=== PATIENT | male | born 1990 | race Caucasian/White ===

== ENCOUNTER 2024-11-16 13:16 | Inpatient (IN) | payer MEDICAID ==
[~2024-11-16] VITALS: Ht 177.8 cm; Wt 66.9 kg
[2024-11-16] MEDS: ACETAMINOPHEN 500 MG TABLET PO ONE (13:51)
[2024-11-16] MEDS: SODIUM CHLORIDE 0.9% 1,000 ML IV ONE (13:51)
[2024-11-16] MEDS: LORazepam 2 MG/ML VIAL IVP ONE (13:51)
[2024-11-16 13:55] LABS: PLATELET COUNT (AUTO) 431 K/uL (150-450); RED BLOOD CELL COUNT(AUTO) 4.93 MIL/uL (4.50-5.90); RED CELL DISTRIBUTION WIDTH 14.2 % (11.5-14.5); WHITE BLOOD COUNT (AUTO) 9.4 K/uL (4.5-11.0)
[2024-11-16 14:00] LABS: APPEARANCE,URINE CLEAR (CLEAR); GLUCOSE, URINE (UA) NEGATIVE (NEGATIVE); LEUKOCYTE ESTERASE ,URINE NEGATIVE (NEGATIVE); NITRATE,URINE NEGATIVE (NEGATIVE); OCCULT BLOOD,URINE NEGATIVE (NEGATIVE); PH,URINE DRUG SCREEN 6.5 (5.0-8.0); SPECIFIC GRAVITIY, URINE 1.002 (1.003-1.030)
[2024-11-16 14:06] LABS: CALCIUM, TOTAL 9.3 mg/dL (8.8-10.5); CREATININE 0.62 mg/dL (0.60-1.30); GLOMERULAR FILTR. RATE CALC > 60 mL/min (>60); GLUCOSE,RANDOM 113 mg/dL (70-110); SODIUM SERUM 142 mmol/L (136-145); UREA NITROGEN, BLOOD 8 mg/dL (7-18)
[2024-11-16 14:07] LABS: ALCOHOL, BLOOD (SERUM) 13.0 mg/dL (0-10)
[2024-11-16 14:09] LABS: ASPARTATE AMINOTRANSFERASE 13.0 U/L (15-37); CREATINE KINASE, TOTAL ONLY 70.0 U/L (39-308); TOTAL PROTEIN, SERUM 8.1 g/dL (6.4-8.2)
[2024-11-16 14:10] LABS: ALCOHOL, URINE DRUG SCREEN NEGATIVE (NEGATIVE); AMPHET/METH SCREEN,URINE NEGATIVE (NEGATIVE); BARBITURATE SCREEN, URINE NEGATIVE (NEGATIVE); CANNABINOID SCREEN,URINE NEGATIVE (NEGATIVE); COCAINE SCREEN,URINE NEGATIVE (NEGATIVE); METHADONE SCREEN, URINE NEGATIVE (NEGATIVE)
[2024-11-16 14:12] LABS: TROPONIN I-HIGH SENSITIVITY 5 ng/L (<76)
[2024-11-16] MEDS: LevETIRAcetam 1,000 MG in DEXTROSE 5%-WATER 100 ML IV ONE (15:12)
[2024-11-16] MEDS: KETOROLAC TROMETHAMINE 30 MG/ML VIAL IVP ONE (16:02)
[2024-11-16] MEDS ORDERED: ACETAMINOPHEN 325 MG TABLET PO PRN ×2 (21:15)
[2024-11-16] MEDS ORDERED: MAGNESIUM HYDROXIDE SUSPENSION 30 ML UDCUP PO PRN (21:15)
[2024-11-16] MEDS ORDERED: ALBUTEROL SULFATE 2.5 MG/0.5 ML NEB SOLUTION NEB PRN (21:15)
[2024-11-16] MEDS ORDERED: PROMETHAZINE HCL 25 MG TABLET PO PRN (21:15)
[2024-11-16] MEDS ORDERED: MAG HYDROX/ALUMINUM HYD/SIMETH ES 30 ML SUSPENSION UDCUP PO PRN (21:15)
[2024-11-16] MEDS ORDERED: LOPERAMIDE HCL 2 MG/15 ML SUSPENSION UDCUP PO PRN (21:15)
[2024-11-16] MEDS ORDERED: BACLOFEN 10 MG TABLET PO PRN (21:15)
[2024-11-16] MEDS ORDERED: BISACODYL 10 MG RECTAL RECTAL SUPPOSITORY PR PRN (21:15)
[2024-11-16] MEDS ORDERED: IBUPROFEN 600 MG TABLET PO PRN (21:15)
[2024-11-16] MEDS ORDERED: LORazepam 2 MG/ML VIAL IVP PRN (21:15)
[2024-11-16] MEDS ORDERED: IPRATROPIUM BROMIDE 0.5 MG/2.5 ML NEB SOLUTION NEB PRN (21:15)
[2024-11-16] MEDS ORDERED: ONDANSETRON HCL 4 MG/2 ML VIAL IVP PRN (21:15)
[2024-11-16] MEDS ORDERED: DICYCLOMINE HCL 10 MG CAPSULE PO PRN (21:15)
[2024-11-16 21:17] VITALS: BP 99/67; PULSE 69; RESP 18; TEMP 97.7; O2SAT 97
[2024-11-16 21:30] VITALS: BP 99/67; PULSE 69; RESP 18; TEMP 97.7; O2SAT 100; O2SAT 97
[2024-11-16] MEDS: 1: MAGNESIUM SULFATE 2 GM, MVI, ADULT NO.1 WITH VIT K 10 ML, THIAMINE 100 MG, FOLIC ACID IV SCH (22:15)
[2024-11-16 22:37] VITALS: BP 110/71; PULSE 89; RESP 16; O2SAT 97
[2024-11-16] MEDS: HYDROCODONE/ACETAMINOPHEN 5-325 MG TABLET PO PRN (22:40)
[2024-11-17] VITALS (7 sets, daily range): BP systolic 101–124; BP diastolic 70–95; PULSE 75–88; RESP 17–18; TEMP 97.7–98.8; O2SAT 96–98
[2024-11-17] MEDS: HEPARIN SODIUM,PORCINE 5,000 UNITS/ML VIAL SQ SCH
[2024-11-17] MEDS: PANTOPRAZOLE SODIUM 40 MG DR TABLET PO SCH (09:26)
[2024-11-17] MEDS ORDERED: SODIUM CHLORIDE 0.9% 1,000 ML ONE (12:05)
[2024-11-17] MEDS: POTASSIUM CHLORIDE 20 MEQ ER TABLET PO ONE (21:26)
[2024-11-18] VITALS (8 sets, daily range): BP systolic 109–137; BP diastolic 73–90; PULSE 78–100; RESP 16–20; TEMP 97.7–98.6; O2SAT 95–100
[2024-11-18] MEDS: MORPHINE SULFATE 2 MG/ML SYRINGE IVP PRN (03:05)
[2024-11-18 06:11] LABS: CALCIUM, TOTAL 8.6 mg/dL (8.8-10.5); CREATININE 0.57 mg/dL (0.60-1.30); GLOMERULAR FILTR. RATE CALC > 60 mL/min (>60); GLUCOSE,RANDOM 98 mg/dL (70-110); SODIUM SERUM 141 mmol/L (136-145); UREA NITROGEN, BLOOD 7 mg/dL (7-18)
[2024-11-18 06:38] LABS: PLATELET COUNT (AUTO) 355 K/uL (150-450); RED BLOOD CELL COUNT(AUTO) 4.29 MIL/uL (4.50-5.90); RED CELL DISTRIBUTION WIDTH 14.0 % (11.5-14.5); WHITE BLOOD COUNT (AUTO) 8.7 K/uL (4.5-11.0)
[2024-11-18] MEDS ORDERED: SODIUM CHLORIDE 0.9% 1,000 ML ONE (13:38)
[2024-11-18] MEDS: ZOLPIDEM TARTRATE 5 MG TABLET PO PRN (20:29)
[2024-11-19 03:20] VITALS: BP 134/96; PULSE 83; RESP 20; TEMP 98; O2SAT 96
[2024-11-19 07:49] VITALS: BP 131/88; PULSE 90; RESP 18; TEMP 98.1; O2SAT 97
[2024-11-19] MEDS ORDERED: THIA100T80 PO (12:33)
[2024-11-19] MEDS ORDERED: MULT-1203 PO (12:33)
[2024-11-19] MEDS ORDERED: FOLI-130 PO (12:33)
[2024-11-19] MEDS ORDERED: LORA1TAB25 PO ×2 (12:33→12:35)
[2024-11-19] MEDS ORDERED: LEVE-71 PO (12:33)
== END 2024-11-19 14:25 | disposition home or self-care (01) | DRG 53 ==
LOC: EMS 13:18 → EDH 17:44 → 5S 21:04 → 6N 11-18 14:50
PROVIDERS: ADMIT Hospitalist; ATTEND Hospitalist
DX: G40.89 Other seizures (principal); E87.6 Hypokalemia; F10.939 Alcohol use, unspecified with withdrawal, unspecified; F41.9 Anxiety disorder, unspecified; F15.10 Other stimulant abuse, uncomplicated; F19.10 Other psychoactive substance abuse, uncomplicated; F13.239 Sedative, hypnotic or anxiolytic dependence with withdrawal, unspecified; S20.20XA Contusion of thorax, unspecified, initial encounter; Y90.9 Presence of alcohol in blood, level not specified; X58.XXXA Exposure to other specified factors, initial encounter; Y93.89 Activity, other specified; Y92.89 Other specified places as the place of occurrence of the external cause; Y99.8 Other external cause status; Z79.899 Other long term (current) drug therapy; Z71.6 Tobacco abuse counseling
CPT/HCPCS: 70450; 71045; 72125; 72128; 80048; 80076; 80307; 81003; 82550; 83735; 83880; 84484; 85025; 93005; 99285; G0480; J0712; J1644; J1885; J2060; J2270; J3411; J3475; J3490; J7030; J7060; 36415-L1; 36415-TC

== ENCOUNTER 2024-12-28 20:16 | Emergency (ER) | payer MEDICAID ==
[~2024-12-28] VITALS: Ht 170.2 cm; Wt 63.6 kg
[~2024-12-28 20:16] MED LIST: FOLI-130 PO; LEVE-71 PO; LORA1TAB25 PO; MULT-1203 PO; THIA100T80 PO
[2024-12-28 20:21] VITALS: TEMP 97.6
[2024-12-28 20:58] LABS: PLATELET COUNT (AUTO) 305 K/uL (150-450); RED BLOOD CELL COUNT(AUTO) 4.41 MIL/uL (4.50-5.90); RED CELL DISTRIBUTION WIDTH 13.1 % (11.5-14.5); WHITE BLOOD COUNT (AUTO) 8.3 K/uL (4.5-11.0)
[2024-12-28 21:05] LABS: CALCIUM, TOTAL 8.8 mg/dL (8.8-10.5); CREATININE 0.73 mg/dL (0.60-1.30); GLOMERULAR FILTR. RATE CALC > 60 mL/min (>60); GLUCOSE,RANDOM 111 mg/dL (70-110); SODIUM SERUM 139 mmol/L (136-145); UREA NITROGEN, BLOOD 11 mg/dL (7-18)
[2024-12-28 21:11] LABS: ASPARTATE AMINOTRANSFERASE 37 U/L (15-37); CREATINE KINASE, TOTAL ONLY 356 U/L (39-308); TOTAL PROTEIN, SERUM 7.2 g/dL (6.4-8.2)
[2024-12-28 21:15] LABS: TROPONIN I-HIGH SENSITIVITY 7 ng/L (<76)
[2024-12-28 21:16] LABS: ALCOHOL, BLOOD (SERUM) < 3 mg/dL (0-10)
[2024-12-28 21:24] LABS: PH,URINE DRUG SCREEN 6.0 (5.0-8.0)
[2024-12-28 21:33] LABS: ALCOHOL, URINE DRUG SCREEN NEGATIVE (NEGATIVE); AMPHET/METH SCREEN,URINE POSITIVE (NEGATIVE); BARBITURATE SCREEN, URINE NEGATIVE (NEGATIVE); CANNABINOID SCREEN,URINE NEGATIVE (NEGATIVE); COCAINE SCREEN,URINE NEGATIVE (NEGATIVE); METHADONE SCREEN, URINE POSITIVE (NEGATIVE)
[2024-12-29 05:21] VITALS: BP 18/74; PULSE 80; RESP 15; O2SAT 99
== END 2024-12-29 06:05 | disposition home or self-care (01) ==
LOC: EMS 20:17
DX: T40.411A Poisoning by fentanyl or fentanyl analogs, accidental (unintentional), initial encounter (principal); F15.10 Other stimulant abuse, uncomplicated; F10.20 Alcohol dependence, uncomplicated; F41.9 Anxiety disorder, unspecified; F11.90 Opioid use, unspecified, uncomplicated; F17.210 Nicotine dependence, cigarettes, uncomplicated; Z79.899 Other long term (current) drug therapy; Y92.89 Other specified places as the place of occurrence of the external cause
CPT/HCPCS: 99285; 71045; 80048; 80076; 82550; 83880; 84484; 85025; 36415; 93005; 80307; G0480